=== PATIENT | male | born 1955 | race Caucasian/White ===

== ENCOUNTER 2016-09-22 07:05 | Outpatient (CLI) | payer OTHER ==
[~2016-09-22 07:05] MED LIST: ASPIR 8181 MG PO; CARAFATE1 GM/10 ML PO; CARDIZEM CD360 MG PO; CATAPRES 0.1MG0.1 MG PO; CLARITIN10 M2 PO; COMBIVENT0.074 GM/I INH; DIABETA 5 MG TAB5 MG PO; DILTIAZEM ER420 M1 PO; FLOMAX 0.4 MG0.4 MG PO; GLUCOTROL XL 5 M5 MG PO; GLUCOTROL5 MG PO; ISOSORBIDE MONO30 MG PO; JANUVIA 100 MG100 MG PO; LASIX 40 MG TAB40 MG PO; LASIX40 MG PO; LIPITOR TAB 2020 MG PO; LISINOPRIL40 MG PO; LO-DOSE ASPIRIN81 MG PO; LORATADINE10 MG PO; LORTAB 7.5-3251 EACH PO; METFORMIN HCL1000 M1 PO; METFORMIN HCL1000 MG PO; METHOCARBAMOL750 MG PO; NAPROXEN500 MG PO; NITRO DUR TD; NITROGLYCERIN1 EAC1 TD; NITROSTAT 0.40.4 MG SL; NITROSTAT0.4 MG SL; PLAVIX 75 MG TA75 MG PO; POTASSIUM CHLO20 ME1 PO; PROVENTIL HFA 61 INH INH; Q-TUSSIN PO; RANITIDINE HCL300 MG PO; TRIAMTERENE-HC1 EAC1 PO; TYLENOL W/CODEIN1 E1 PO; VENTOLIN/PROVE0.5 ML INH; ZESTRIL 40 MG T40 MG PO
[2016-09-22 07:48] LABS: HEMOGLOBIN 13.8 gm/dl (14.0-17.5); RED BLOOD COUNT 4.28 M/UL (4.20-5.50); WHITE BLOOD COUNT 8.5 K/UL (4.5-11.0)
[2016-09-22 08:03] LABS: BUN/CREATININE RATIO 20 (0-10)
[2016-09-22] MEDS ORDERED: ISOSORBIDE MONO30 MG PO (08:32)
[2016-09-22] MEDS ORDERED: JANUVIA100 MG PO (08:32)
[2016-09-23 04:39] LABS: RED BLOOD COUNT 4.08 M/UL (4.20-5.50); WHITE BLOOD COUNT 8.7 K/UL (4.5-11.0)
[2016-09-23 05:08] LABS: BUN/CREATININE RATIO 20 (0-10)
[2016-09-23] MEDS ORDERED: LOPRESSOR 25 MG25 MG PO (11:56)
== END 2016-09-23 13:08 | disposition home or self-care (01) ==
LOC: CATH 07:05 → PROG CARE 16:20 → CATH 09-23 13:08
PROVIDERS: Internal Medicine Cardiovascular Disease
DX: I25.119 Atherosclerotic heart disease of native coronary artery with unspecified angina pectoris (principal); T82.855A Stenosis of coronary artery stent, initial encounter; I11.0 Hypertensive heart disease with heart failure; I50.32 Chronic diastolic (congestive) heart failure; E11.9 Type 2 diabetes mellitus without complications; E78.5 Hyperlipidemia, unspecified; I70.211 Atherosclerosis of native arteries of extremities with intermittent claudication, right leg; F17.210 Nicotine dependence, cigarettes, uncomplicated; E66.9 Obesity, unspecified; Z68.39 Body mass index [BMI] 39.0-39.9, adult; Z95.5 Presence of coronary angioplasty implant and graft; Z95.1 Presence of aortocoronary bypass graft; J44.9 Chronic obstructive pulmonary disease, unspecified; I67.9 Cerebrovascular disease, unspecified; Z88.8 Allergy status to other drugs, medicaments and biological substances; G47.30 Sleep apnea, unspecified; Z98.62 Peripheral vascular angioplasty status; F41.9 Anxiety disorder, unspecified; K21.9 Gastro-esophageal reflux disease without esophagitis; G47.33 Obstructive sleep apnea (adult) (pediatric); Z86.73 Personal history of transient ischemic attack (TIA), and cerebral infarction without residual deficits; J45.909 Unspecified asthma, uncomplicated; K27.9 Peptic ulcer, site unspecified, unspecified as acute or chronic, without hemorrhage or perforation; Z79.82 Long term (current) use of aspirin; Z79.84 Long term (current) use of oral hypoglycemic drugs; Z79.891 Long term (current) use of opiate analgesic; Z79.899 Other long term (current) drug therapy
CPT/HCPCS: 36415; 80048; 85025; 85027; 85347; 85610; 85730; 93005; 94640; 94664; C1725; C1769; C1874; C1887; C9600; J0360; J0461; J0583; J1644; J2250; J3010; J7030; Q0163; Q9963

== ENCOUNTER 2016-09-26 22:51 | Inpatient (IN) | payer OTHER ==
[~2016-09-26 22:51] MED LIST changes: +JANUVIA100 MG PO; +LOPRESSOR 25 MG25 MG PO
[2016-09-27 00:33] LABS: HEMOGLOBIN 12.9 gm/dl (14.0-17.5); WHITE BLOOD COUNT 8.8 K/UL (4.5-11.0)
[2016-09-27 04:42] LABS: BUN/CREATININE RATIO 19 (0-10)
--- NOTE | 2016-09-27 19:07 | NUR ---
1850 TO [facility] PER STRETCHER. A/O X3 DEINES ANY PAIN AT THIS TIME. DIRECTED TO [facility] WAITING ROOM.
[2016-09-28 04:52] LABS: HEMOGLOBIN 11.3 gm/dl (14.0-17.5)
[2016-09-28 04:54] LABS: RED BLOOD COUNT 3.58 M/UL (4.20-5.50); WHITE BLOOD COUNT 6.3 K/UL (4.5-11.0)
[2016-09-28 05:24] LABS: BUN/CREATININE RATIO 24 (0-10)
[2016-09-28] MEDS ORDERED: DILTIAZEM 24HR300 MG PO (09:10)
[2016-09-28] MEDS ORDERED: COMBIVENT0.074 GM/I INH (14:57)
== END 2016-09-28 16:00 | disposition home or self-care (01) | DRG 281 ==
LOC: PROG CARE 22:51 → ZEROF 09-28 09:41 → PROG CARE 09-28 09:41
PROVIDERS: Internal Medicine; ADMIT Emergency Medicine
PROC: 4A023N7 Measurement of Cardiac Sampling and Pressure, Left Heart, Percutaneous Approach (ICD-10-PCS; principal; 2016-09-27)
PROC: B2111ZZ Fluoroscopy of Multiple Coronary Arteries using Low Osmolar Contrast (ICD-10-PCS; 2016-09-27)
DX: I21.4 Non-ST elevation (NSTEMI) myocardial infarction (principal); I97.630 Postprocedural hematoma of a circulatory system organ or structure following a cardiac catheterization; I25.110 Atherosclerotic heart disease of native coronary artery with unstable angina pectoris; J44.9 Chronic obstructive pulmonary disease, unspecified; Y84.0 Cardiac catheterization as the cause of abnormal reaction of the patient, or of later complication, without mention of misadventure at the time of the procedure; Y71.0 Diagnostic and monitoring cardiovascular devices associated with adverse incidents; I10 Essential (primary) hypertension; E66.01 Morbid (severe) obesity due to excess calories; E11.9 Type 2 diabetes mellitus without complications; I70.201 Unspecified atherosclerosis of native arteries of extremities, right leg; E78.5 Hyperlipidemia, unspecified; R09.02 Hypoxemia; D64.9 Anemia, unspecified; K21.9 Gastro-esophageal reflux disease without esophagitis; E88.09 Other disorders of plasma-protein metabolism, not elsewhere classified; G89.29 Other chronic pain; M54.5 Low back pain; F17.210 Nicotine dependence, cigarettes, uncomplicated; I25.2 Old myocardial infarction; Z95.5 Presence of coronary angioplasty implant and graft; Z98.62 Peripheral vascular angioplasty status; Z68.39 Body mass index [BMI] 39.0-39.9, adult; Z79.84 Long term (current) use of oral hypoglycemic drugs; Z79.02 Long term (current) use of antithrombotics/antiplatelets; Z79.891 Long term (current) use of opiate analgesic; Z79.82 Long term (current) use of aspirin; Z79.899 Other long term (current) drug therapy; Z88.5 Allergy status to narcotic agent; Z88.6 Allergy status to analgesic agent; Z82.49 Family history of ischemic heart disease and other diseases of the circulatory system; Z82.3 Family history of stroke
CPT/HCPCS: 36415; 80048; 80053; 82550; 82553; 82962; 83735; 84484; 85027; 85610; 85730; 93005; 94640; 94664; C1769; C1887; J1644; J2250; J3010; J7030; J7040; Q9963

== ENCOUNTER → 2016-10-07 | Outpatient (CLI) | payer OTHER ==
[~2016-10-07] MED LIST changes: +DILTIAZEM 24HR300 MG PO
== END ==
LOC: US 16:00
DX: S30.1XXA Contusion of abdominal wall, initial encounter (principal); R09.89 Other specified symptoms and signs involving the circulatory and respiratory systems; M79.89 Other specified soft tissue disorders
CPT/HCPCS: 93926

== ENCOUNTER 2020-11-28 14:18 | Emergency (ER) | payer MEDICARE, OTHER ==
[~2020-11-28 14:18] MED LIST changes: +ASPIRIN EC81 MG PO; +ATIVAN 1MG TABLE1 MG PO; +CATAPRES0.2 MG PO; +CLOPIDOGREL75 MG PO; +IBUPROFEN800 MG PO; +IMDUR ER TAB 3030 MG PO; +LISINOPRIL10 MG PO; +MEDROL DOSEPAK 24 MG PO; +NITRO-DUR1 EAC1 TOP; +PRAVASTATIN SOD80 MG PO; +PROTONIX40 MG PO; +ROBAXIN-750750 MG PO; +ZESTRIL40 MG PO
[2020-11-28 15:23] LABS: HEMOGLOBIN 14.5 gm/dl (14.0-17.5); RED BLOOD COUNT 4.28 M/UL (4.20-5.50); WHITE BLOOD COUNT 13.8 K/UL (4.5-11.0)
[2020-11-28 15:46] LABS: BUN/CREATININE RATIO 34 (0-10)
[2020-11-28] MEDS ORDERED: VIBRAMYCIN 100100 MG PO (18:21)
[2020-11-28] MEDS ORDERED: PROAIR DIGIHAL90 MCG INH (18:21)
== END 2020-11-28 18:55 | disposition home or self-care (01) ==
LOC: ER1 14:18
PROVIDERS: Physician Assistant Medical
DX: J18.0 Bronchopneumonia, unspecified organism (principal); J44.9 Chronic obstructive pulmonary disease, unspecified; I10 Essential (primary) hypertension; E78.5 Hyperlipidemia, unspecified; F17.210 Nicotine dependence, cigarettes, uncomplicated; Z86.73 Personal history of transient ischemic attack (TIA), and cerebral infarction without residual deficits; Z88.5 Allergy status to narcotic agent
CPT/HCPCS: 71045; 80053; 83605; 83880; 85025; 87040; 93005; 96374; 99285; J1940

== ENCOUNTER → 2021-07-20 | Outpatient (CLI) | payer MEDICARE, OTHER ==
[~2021-07-20] MED LIST changes: +PROAIR DIGIHAL90 MCG INH; +VIBRAMYCIN 100100 MG PO
== END ==
LOC: SLEEP-COR 14:43
DX: G47.33 Obstructive sleep apnea (adult) (pediatric) (principal)
CPT/HCPCS: 95810